=== PATIENT | female | born 2000 | race Caucasian/White ===

== ENCOUNTER 2022-12-06 10:49 | Observation (INO) | payer MEDICAID ==
[~2022-12-06] VITALS: Ht 160 cm; Wt 75.0 kg
[2022-12-06] MEDS ORDERED: ACETAMINOPHEN 325MG TABLET PO ONE (17:00)
[2022-12-06] MEDS ORDERED: LABETALOL HCL VIAL 20 MG/4 ML VIAL IV ONE (18:30)
[2022-12-06 18:49] LABS: CLARITY URINE CLOUDY (CLEAR); COLOR URINE YELLOW (YELLOW); KETONES URINE NEGATIVE (NEGATIVE); LEUKOCYTE ESTERASE URINE 2+ (NEGATIVE); NITRITE URINE NEGATIVE (NEGATIVE); OCCULT BLOOD URINE NEGATIVE (NEGATIVE); PH URINE 5.5 (4.5-8.0); PROTEIN URINE 2+ (NEGATIVE); UROBILINOGEN URINE 0.2 E.U./dL (0.2-1.0)
[2022-12-06 18:59] LABS: BASOPHILS % 0.4 % (0.0-2.0); EOSINOPHILS % 0.1 % (0.0-5.0); HEMATOCRIT. 34.8 % (36.0-48.0); HEMOGLOBIN. 11.1 g/dL (12.0-16.0); LYMPHOCYTES % 25.8 % (20.0-50.0); MEAN CORPUSCULAR HEMOGLOBIN 25.7 pg (28.0-32.0); MEAN CORPUSCULAR VOLUME 80.5 fL (81.0-99.0); MEAN PLATELET VOLUME 10.6 fl (7.4-10.4); MONOCYTES % 7.6 % (2.0-8.0); NEUTROPHILS % 66.1 % (40.0-76.0); PLATELET 174 x1000/uL (130-400); RED BLOOD CELL COUNT 4.33 mill/uL (4.2-5.4); RED CELL DISTRIBUTION WIDTH 16.4 % (11.6-14.6)
[2022-12-06 19:10] LABS: CHLORIDE 107 mEq/L (98-107)
[2022-12-06 19:12] LABS: INR 0.9; PROTHROMBIN TIME 9.5 sec (9.6-11.0)
[2022-12-06 19:34] LABS: B-HCG QUANTITATIVE 22981 mIU/mL (<3)
[2022-12-06 20:45] VITALS: BP 129/93
[2022-12-06] MEDS ORDERED: LABETALOL 5MG/ML SYR 20 MG/4 ML SYRINGE IV NR (20:45)
[2022-12-06] MEDS ORDERED: ACETAMINOPHEN 325MG TABLET PO NR (20:45)
[2022-12-07] MEDS: TERBUTALINE SULFATE 1MG/ML VIAL SUBCUT PRN ×3 (00:02→02:24)
[2022-12-07] MEDS: LACTATED RINGERS 1,000 ML IV SCH ×2 (02:27)
[2022-12-07] MEDS ORDERED: PREN-176 PO (02:47)
== END 2022-12-07 03:15 | disposition home or self-care (01) ==
LOC: ER 10:49 → 8 EST LDRP 22:11
PROVIDERS: ADMIT Specialist; ATTEND Specialist
DX: O16.3 Unspecified maternal hypertension, third trimester (principal); Z3A.36 36 weeks gestation of pregnancy; Z79.899 Other long term (current) drug therapy
CPT/HCPCS: 36415; 59025; 76805; 76815; 76817; 76818; 80053; 81003; 83615; 83735; 84484; 84550; 84702; 85025; 85610; 96361; 96372; 96374; G0378; J3105; J3490; 96360; 99281